=== PATIENT | male | born 1935 | race Caucasian/White ===

== ENCOUNTER 2023-08-01 10:45 | Inpatient (IN) | payer MEDICARE, OTHER ==
[~2023-08-01] VITALS: Ht 170.2 cm; Wt 61.2 kg
[2023-08-01 11:19] LABS: BASOPHILS % (AUTO) 0.4 % (0.0-2.0); EOSINOPHILS # (AUTO) 0.2 K/uL (0.0-0.7); EOSINOPHILS % (AUTO) 3.6 % (0.0-7.0); HEMATOCRIT 32.9 % (36.7-47.1); HEMOGLOBIN 10.8 g/dL (12.5-16.3); LYMPHOCYTES # (AUTO) 1.3 K/uL (0.8-4.8); LYMPHOCYTES % (AUTO) 22.8 % (20.5-51.5); MEAN CORPUSCULAR HEMOGLOBIN 30.7 uug (23.8-33.4); MEAN CORPUSCULAR HGB CONC 33 g/dL (32.5-36.3); MEAN CORPUSCULAR VOLUME 93.6 fL (73.0-96.2); MONOCYTES # (AUTO) 0.8 K/uL (0.1-1.30); MONOCYTES % (AUTO) 13.3 % (0.0-11.0); NEUTROPHILS # (AUTO) 3.5 K/uL (1.8-8.9); NEUTROPHILS % (AUTO) 59.9 % (38.5-71.5); PLATELET COUNT (AUTO) 135 K/uL (152-348); RED BLOOD CELL COUNT(AUTO) 3.51 MIL/uL (4.06-5.63); RED CELL DISTRIBUTION WIDTH 13.8 % (12.1-16.2); WHITE BLOOD COUNT (AUTO) 5.8 K/uL (3.6-10.2)
[2023-08-01 11:46] LABS: ALANINE AMINOTRANSFERASE 18 U/L (16-63); ALBUMIN 3.3 g/dL (3.4-5.0); ALKALINE PHOSPHATASE 52 U/L (50-136); ASPARTATE AMINOTRANSFERASE 18 U/L (15-37); BILIRUBIN,DIRECT 0.1 mg/dL (0.0-0.2); BILIRUBIN,TOTAL 0.4 mg/dL (0.2-1.0); CARBON DIOXIDE 26 mmol/L (21-32); CHLORIDE 104 mmol/L (98-107); CREATININE 2.5 mg/dL (0.6-1.3); GLUCOSE 107 mg/dL (74-106); NT-PRO BNP 1643 pg/mL (0-125); POTASSIUM 4.8 mmol/L (3.5-5.1); SODIUM SERUM 137 mmol/L (136-145); TOTAL PROTEIN, SERUM 6.6 g/dL (6.4-8.2); UREA NITROGEN, BLOOD 63 mg/dL (7-18)
[2023-08-01 11:58] LABS: DIFFERENTIAL COMMENT 1
[2023-08-01] MEDS ORDERED: AMIO100T4 PO (12:11)
[2023-08-01] MEDS ORDERED: APIX5TAB PO (12:11)
[2023-08-01] MEDS ORDERED: METF-440 PO (12:11)
[2023-08-01] MEDS ORDERED: LOSA50TA39 PO (12:11)
[2023-08-01] MEDS ORDERED: DOCU-141 PO (12:11)
[2023-08-01] MEDS ORDERED: GABA-532 PO (12:11)
[2023-08-01] MEDS ORDERED: METO-357 PO (12:11)
[2023-08-01] MEDS ORDERED: EMPA10TA PO (12:11)
[2023-08-01] MEDS ORDERED: DORZ10DR11 EACHEYE (12:12)
[2023-08-01] MEDS ORDERED: CHOL100062 PO (12:12)
[2023-08-01] MEDS ORDERED: LATA2.5D15 EACHEYE (12:12)
[2023-08-01] MEDS ORDERED: ATOR10TA (12:12)
[2023-08-01] MEDS ORDERED: FUROSEMIDE 40 MG/4 ML VIAL ONE (12:20)
[2023-08-01] MEDS: FUROSEMIDE 40 MG/4 ML VIAL IV ONE (12:20)
[2023-08-01 12:34] LABS: MAGNESIUM 2.2 mg/dL (1.8-2.4)
[2023-08-01] MEDS ORDERED: REMEDY ESSENTIAL ZINC PASTE 113 GM TP PRN (13:30)
[2023-08-01] MEDS ORDERED: MAGNESIUM HYDROXIDE 30 ML LIQUID UDC PO PRN (13:30)
[2023-08-01] MEDS ORDERED: ACETAMINOPHEN 325 MG TABLET PO PRN (13:30)
[2023-08-01] MEDS ORDERED: ONDANSETRON 4 MG/2 ML VIAL IV PRN (13:30)
[2023-08-01 13:51] LABS: *BILIRUBIN,URIN NEGATIVE (NEGATIVE); *BLOOD, URINE NEGATIVE (NEGATIVE); *CLARITY,URINE CLEAR (CLEAR); *COLOR,URINE YELLOW (YELLOW); *KETONES,URINE NEGATIVE (NEGATIVE); *PROTEIN,URINE NEGATIVE (NEGATIVE); *UROBILINOGEN,URINE 0.2 E.U./dl (NORMAL); LEUKOCYTE ESTERASE ,URINE NEGATIVE (NEGATIVE); NITRITE, URINE NEGATIVE (NEGATIVE); PH,URINE 5.5 (5.0-8.0)
[2023-08-01] MEDS ORDERED: LORAZEPAM 2 MG/1 ML VIAL ONE (14:25)
[2023-08-01] MEDS ORDERED: diphenhydrAMINE 50 MG/1 ML VIAL ONE (14:26)
[2023-08-01 14:40] LABS: UGLUCOSE 1+ (NEGATIVE)
[2023-08-01] MEDS: LORAZEPAM 2 MG/1 ML VIAL IV ONE (14:46)
[2023-08-01] MEDS: diphenhydrAMINE 50 MG/1 ML VIAL IV PRN (14:46)
[2023-08-01 15:18] VITALS: BP 130/61; TEMP 97.3; O2SAT 98
[2023-08-01] MEDS ORDERED: DEXTROSE 50% 50 ML DISP.SYRIN IV PRN (15:30)
[2023-08-01] MEDS: BLOOD SUGAR DIAGNOSTIC 1 EACH STRIP VI SCH (16:36)
[2023-08-01] MEDS: APIXABAN 5 MG TABLET PO SCH (17:09)
[2023-08-01] MEDS: DOCUSATE SODIUM 100 MG CAPSULE PO SCH (17:09)
[2023-08-01] MEDS: DORZOLAMIDE/TIMOLOL OPHT DROP 10 ML BOTTLE EACHEYE SCH (17:11)
[2023-08-01 21:16] VITALS: BP 141/60; TEMP 97.4; O2SAT 97
[2023-08-01] MEDS: ATORVASTATIN 10 MG TABLET PO SCH (21:20)
[2023-08-01] MEDS: LATANOPROST OPHT DROP 2.5 ML BOTTLE EACHEYE SCH (21:21)
[2023-08-02 00:39] VITALS: BP 156/63; TEMP 97.5; O2SAT 98
[2023-08-02 07:31] LABS: BASOPHILS % (AUTO) 0.4 % (0.0-2.0); EOSINOPHILS % (AUTO) 0.3 % (0.0-7.0); HEMATOCRIT 36.6 % (36.7-47.1); HEMOGLOBIN 12.4 g/dL (12.5-16.3); LYMPHOCYTES # (AUTO) 1.1 K/uL (0.8-4.8); LYMPHOCYTES % (AUTO) 11.9 % (20.5-51.5); MEAN CORPUSCULAR HEMOGLOBIN 31.4 uug (23.8-33.4); MEAN CORPUSCULAR HGB CONC 34 g/dL (32.5-36.3); MEAN CORPUSCULAR VOLUME 92.3 fL (73.0-96.2); MONOCYTES # (AUTO) 0.7 K/uL (0.1-1.30); MONOCYTES % (AUTO) 7.2 % (0.0-11.0); NEUTROPHILS # (AUTO) 7.6 K/uL (1.8-8.9); NEUTROPHILS % (AUTO) 80.2 % (38.5-71.5); PLATELET COUNT (AUTO) 178 K/uL (152-348); RED BLOOD CELL COUNT(AUTO) 3.97 MIL/uL (4.06-5.63); RED CELL DISTRIBUTION WIDTH 13.9 % (12.1-16.2); WHITE BLOOD COUNT (AUTO) 9.5 K/uL (3.6-10.2)
[2023-08-02 07:37] VITALS: BP 104/65; TEMP 98.4; O2SAT 96
[2023-08-02 07:39] LABS: DIFFERENTIAL COMMENT 1
[2023-08-02 07:43] LABS: ALANINE AMINOTRANSFERASE 22 U/L (16-63); ALBUMIN 3.7 g/dL (3.4-5.0); ALKALINE PHOSPHATASE 68 U/L (50-136); ASPARTATE AMINOTRANSFERASE 24 U/L (15-37); BILIRUBIN,TOTAL 0.5 mg/dL (0.2-1.0); CALCIUM 9.7 mg/dL (8.5-10.1); CARBON DIOXIDE 22 mmol/L (21-32); CHLORIDE 103 mmol/L (98-107); CREATININE 2.3 mg/dL (0.6-1.3); GLUCOSE 163 mg/dL (74-106); MAGNESIUM 2.4 mg/dL (1.8-2.4); PHOSPHOROUS 6.6 mg/dL (2.5-4.9); POTASSIUM 4.9 mmol/L (3.5-5.1); SODIUM SERUM 137 mmol/L (136-145); TOTAL PROTEIN, SERUM 7.4 g/dL (6.4-8.2); UREA NITROGEN, BLOOD 65 mg/dL (7-18)
[2023-08-02] MEDS: INSULIN REGULAR, HUMAN 300 UNIT/3 ML VIAL SQ PRN (07:54)
[2023-08-02] MEDS: AMIODARONE HCL 200 MG TABLET PO SCH (08:38)
[2023-08-02] MEDS: CHOLECALCIFEROL 1,000 UNIT TABLET PO SCH (08:38)
[2023-08-02] MEDS: METOPROLOL SUCCINATE XL 50 MG TAB.SR.24H PO SCH (08:38)
[2023-08-02] MEDS: APIXABAN 2.5 MG TABLET PO SCH (08:46)
[2023-08-02] MEDS ORDERED: EMPAGLIFLOZIN PO SCH (09:00)
[2023-08-02] MEDS ORDERED: Medication Not On Formulary EA (Amiodarone HCl 1 TAB) PO SCH (09:00)
[2023-08-02] MEDS ORDERED: APIXABAN 5 MG TABLET PO SCH (09:00)
[2023-08-02 11:17] VITALS: BP 167/69; TEMP 98.4; O2SAT 96
[2023-08-02] MEDS: VANCOMYCIN IV 1,000 MG in IV DEXTROSE 5% 250 ML IV SCH (13:42)
[2023-08-02 15:20] VITALS: BP 158/64; TEMP 98.4; O2SAT 95
[2023-08-02 20:00] VITALS: BP 115/57; TEMP 98.1; O2SAT 94
[2023-08-02] MEDS ORDERED: CEFTRIAXONE /D5W 50ML IVPB **ER PYXIS IV ONE (22:33)
[2023-08-02] MEDS: CEFTRIAXONE 1 G in IV DEXTROSE 5% 50 ML IV SCH (22:41)
[2023-08-03 00:56] VITALS: BP 118/51; TEMP 98; O2SAT 96
[2023-08-03 04:00] VITALS: BP 136/58; TEMP 97.8; O2SAT 98
[2023-08-03 06:54] LABS: BASOPHILS % (AUTO) 0.5 % (0.0-2.0); EOSINOPHILS # (AUTO) 0.2 K/uL (0.0-0.7); EOSINOPHILS % (AUTO) 2.4 % (0.0-7.0); HEMATOCRIT 32.5 % (36.7-47.1); LYMPHOCYTES # (AUTO) 1.3 K/uL (0.8-4.8); LYMPHOCYTES % (AUTO) 18.3 % (20.5-51.5); MEAN CORPUSCULAR HEMOGLOBIN 31.2 uug (23.8-33.4); MEAN CORPUSCULAR HGB CONC 34 g/dL (32.5-36.3); MONOCYTES % (AUTO) 13.8 % (0.0-11.0); NEUTROPHILS # (AUTO) 4.6 K/uL (1.8-8.9); PLATELET COUNT (AUTO) 160 K/uL (152-348); RED BLOOD CELL COUNT(AUTO) 3.53 MIL/uL (4.06-5.63); RED CELL DISTRIBUTION WIDTH 13.7 % (12.1-16.2); WHITE BLOOD COUNT (AUTO) 7.1 K/uL (3.6-10.2)
[2023-08-03 06:59] LABS: DIFFERENTIAL COMMENT 1
[2023-08-03 07:20] LABS: CALCIUM 9.2 mg/dL (8.5-10.1); CARBON DIOXIDE 25 mmol/L (21-32); CHLORIDE 105 mmol/L (98-107); CREATININE 2.2 mg/dL (0.6-1.3); GLUCOSE 122 mg/dL (74-106); POTASSIUM 4.3 mmol/L (3.5-5.1); SODIUM SERUM 139 mmol/L (136-145); UREA NITROGEN, BLOOD 59 mg/dL (7-18)
[2023-08-03 07:50] VITALS: BP 124/61; TEMP 97.8; O2SAT 98
[2023-08-03] MEDS ORDERED: DEXTROSE 5 %-0.45 % NACL 500 ML IV.SOLN IV SCH (11:00)
[2023-08-03 11:58] VITALS: BP 128/65; TEMP 97.8; O2SAT 98
[2023-08-03] MEDS: QUETIAPINE FUMARATE 25 MG TABLET PO SCH (15:08)
[2023-08-03 15:52] VITALS: BP 117/59; TEMP 97.7; O2SAT 98
[2023-08-03 19:30] VITALS: BP 126/60; TEMP 98.1; O2SAT 97
[2023-08-04] MEDS: IV D5 1/2 NS 1000 ML 1,000 ML IV PRN (04:28)
[2023-08-04 05:50] VITALS: BP 146/58; TEMP 97.8; O2SAT 97
[2023-08-04 06:27] LABS: BASOPHILS % (AUTO) 0.6 % (0.0-2.0); EOSINOPHILS # (AUTO) 0.3 K/uL (0.0-0.7); EOSINOPHILS % (AUTO) 3.8 % (0.0-7.0); HEMATOCRIT 33.8 % (36.7-47.1); HEMOGLOBIN 11.3 g/dL (12.5-16.3); LYMPHOCYTES # (AUTO) 1.3 K/uL (0.8-4.8); LYMPHOCYTES % (AUTO) 19.5 % (20.5-51.5); MEAN CORPUSCULAR HEMOGLOBIN 30.8 uug (23.8-33.4); MEAN CORPUSCULAR HGB CONC 34 g/dL (32.5-36.3); MONOCYTES # (AUTO) 0.9 K/uL (0.1-1.30); MONOCYTES % (AUTO) 13.8 % (0.0-11.0); NEUTROPHILS # (AUTO) 4.3 K/uL (1.8-8.9); NEUTROPHILS % (AUTO) 62.3 % (38.5-71.5); PLATELET COUNT (AUTO) 178 K/uL (152-348); RED BLOOD CELL COUNT(AUTO) 3.68 MIL/uL (4.06-5.63); RED CELL DISTRIBUTION WIDTH 13.7 % (12.1-16.2); WHITE BLOOD COUNT (AUTO) 6.8 K/uL (3.6-10.2)
[2023-08-04 06:43] LABS: CARBON DIOXIDE 26 mmol/L (21-32); CHLORIDE 106 mmol/L (98-107); CREATININE 1.9 mg/dL (0.6-1.3); GLUCOSE 135 mg/dL (74-106); POTASSIUM 3.8 mmol/L (3.5-5.1); SODIUM SERUM 141 mmol/L (136-145); UREA NITROGEN, BLOOD 51 mg/dL (7-18)
[2023-08-04 06:49] LABS: DIFFERENTIAL COMMENT 1
[2023-08-04 11:35] VITALS: BP 136/54; TEMP 98.2; O2SAT 98
[2023-08-04] MEDS: GLUCERNA SHAKE 237 ML CAN PO SCH (12:00)
[2023-08-04 15:18] VITALS: BP 137/60; TEMP 97.5; O2SAT 98
[2023-08-04] MEDS: QUETIAPINE FUMARATE 25 MG TABLET PO SCH (16:27)
[2023-08-04 21:06] VITALS: BP 138/61; TEMP 98.4; O2SAT 99
[2023-08-05 08:35] LABS: BASOPHILS # (AUTO) 0.1 K/UL (0.0-0.2); BASOPHILS % (AUTO) 0.9 % (0.0-2.0); EOSINOPHILS # (AUTO) 0.2 K/uL (0.0-0.7); EOSINOPHILS % (AUTO) 2.6 % (0.0-7.0); HEMATOCRIT 34.4 % (36.7-47.1); HEMOGLOBIN 11.5 g/dL (12.5-16.3); LYMPHOCYTES # (AUTO) 1.1 K/uL (0.8-4.8); LYMPHOCYTES % (AUTO) 18.5 % (20.5-51.5); MEAN CORPUSCULAR HEMOGLOBIN 30.7 uug (23.8-33.4); MEAN CORPUSCULAR HGB CONC 33 g/dL (32.5-36.3); MEAN CORPUSCULAR VOLUME 92.1 fL (73.0-96.2); MONOCYTES # (AUTO) 0.8 K/uL (0.1-1.30); MONOCYTES % (AUTO) 13.1 % (0.0-11.0); NEUTROPHILS % (AUTO) 64.9 % (38.5-71.5); PLATELET COUNT (AUTO) 179 K/uL (152-348); RED BLOOD CELL COUNT(AUTO) 3.73 MIL/uL (4.06-5.63); RED CELL DISTRIBUTION WIDTH 13.9 % (12.1-16.2); WHITE BLOOD COUNT (AUTO) 6.2 K/uL (3.6-10.2)
[2023-08-05 08:39] LABS: DIFFERENTIAL COMMENT 1
[2023-08-05 08:50] LABS: CALCIUM 8.8 mg/dL (8.5-10.1); CARBON DIOXIDE 24 mmol/L (21-32); CHLORIDE 106 mmol/L (98-107); CREATININE 1.8 mg/dL (0.6-1.3); GLUCOSE 154 mg/dL (74-106); POTASSIUM 3.9 mmol/L (3.5-5.1); SODIUM SERUM 140 mmol/L (136-145); UREA NITROGEN, BLOOD 44 mg/dL (7-18)
[2023-08-05 08:54] VITALS: BP 134/50; TEMP 97.8; O2SAT 98
[2023-08-05 12:02] VITALS: BP 146/47; TEMP 97.8; O2SAT 99
[2023-08-05 16:45] VITALS: BP 114/44; TEMP 98; O2SAT 98
[2023-08-05] MEDS: MIRTAZAPINE 15 MG TABLET PO SCH (21:48)
[2023-08-06 06:44] LABS: CALCIUM 8.9 mg/dL (8.5-10.1); CARBON DIOXIDE 25 mmol/L (21-32); CHLORIDE 106 mmol/L (98-107); CREATININE 1.6 mg/dL (0.6-1.3); GLUCOSE 142 mg/dL (74-106); SODIUM SERUM 140 mmol/L (136-145); UREA NITROGEN, BLOOD 40 mg/dL (7-18)
[2023-08-06 06:49] VITALS: BP 141/65; TEMP 98.6; O2SAT 99
[2023-08-06 08:42] VITALS: BP 134/53; TEMP 98.2; O2SAT 98
[2023-08-06 11:41] VITALS: BP 132/58; TEMP 98.1; O2SAT 96
[2023-08-06 16:00] VITALS: BP 152/61; TEMP 98.5; O2SAT 96
[2023-08-06 20:22] VITALS: BP 156/60; TEMP 98.2; O2SAT 99
[2023-08-07 06:24] VITALS: BP 150/54; TEMP 98.8; O2SAT 95
[2023-08-07 08:24] VITALS: BP 137/58; TEMP 98.9; O2SAT 97
[2023-08-07 11:51] VITALS: BP 126/51; TEMP 97.9; O2SAT 99
[2023-08-07] MEDS ORDERED: MIRT-121 PO (14:49)
[2023-08-07 15:52] VITALS: BP 130/58; TEMP 97.8; O2SAT 98
== END 2023-08-07 17:50 | DRG 291 ==
LOC: ER 10:45 → TELE3 13:43 → MEDSURG3 08-03 08:50
PROVIDERS: ADMIT Nurse Practitioner Acute Care; ATTEND Nurse Practitioner Acute Care
PROC: 0T9B7ZZ Drainage of Bladder, Via Natural or Artificial Opening (ICD-10-PCS; 2023-08-02)
PROC: 05HB33Z Insertion of Infusion Device into Right Basilic Vein, Percutaneous Approach (ICD-10-PCS; principal; 2023-08-05)
DX: I13.0 Hypertensive heart and chronic kidney disease with heart failure and stage 1 through stage 4 chronic kidney disease, or unspecified chronic kidney disease (principal); G92.8 Other toxic encephalopathy; N17.0 Acute kidney failure with tubular necrosis; I50.33 Acute on chronic diastolic (congestive) heart failure; E44.1 Mild protein-calorie malnutrition; N13.30 Unspecified hydronephrosis; E11.22 Type 2 diabetes mellitus with diabetic chronic kidney disease; N18.9 Chronic kidney disease, unspecified; R54 Age-related physical debility; R62.7 Adult failure to thrive; Z68.21 Body mass index [BMI] 21.0-21.9, adult; I48.0 Paroxysmal atrial fibrillation; Z79.01 Long term (current) use of anticoagulants; E88.09 Other disorders of plasma-protein metabolism, not elsewhere classified; E78.5 Hyperlipidemia, unspecified; Z95.2 Presence of prosthetic heart valve; Z86.73 Personal history of transient ischemic attack (TIA), and cerebral infarction without residual deficits; H40.9 Unspecified glaucoma; I25.10 Atherosclerotic heart disease of native coronary artery without angina pectoris; K57.30 Diverticulosis of large intestine without perforation or abscess without bleeding; J40 Bronchitis, not specified as acute or chronic; R33.9 Retention of urine, unspecified; N28.9 Disorder of kidney and ureter, unspecified; Z79.84 Long term (current) use of oral hypoglycemic drugs; Z79.899 Other long term (current) drug therapy
CPT/HCPCS: 36415; 70450; 71045; 71250; 76775; 83605; 83735; 84100; 84484; 85025; 85730; 87040; 87077; 93005; 93307; 93880; C1758; G0378; J0696; J1200; J1815; J1940; J2060; J3370; J7050